=== PATIENT | male | born 1955 | race Two or more races ===

== ENCOUNTER 2023-10-09 10:24 | Emergency (ER) | payer OTHER ==
[~2023-10-09] VITALS: Ht 172.7 cm; Wt 51.3 kg
[2023-10-09] MEDS ORDERED: NORVASC5 MG PO (10:34)
[2023-10-09] MEDS ORDERED: ELIQUIS5 MG PO (10:34)
[2023-10-09] MEDS ORDERED: CARDURA1 MG PO (10:34)
[2023-10-09] MEDS ORDERED: LOSARTAN POTASS50 MG PO (10:34)
[2023-10-09] MEDS ORDERED: TOPROL XL25 M1 PO (10:36)
[2023-10-09] MEDS ORDERED: XOPENEX CO1.25 MG/0. (10:37)
[2023-10-09] MEDS ORDERED: PROTONIX40 M1 PO (10:38)
[2023-10-09 12:10] LABS: HEMATOCRIT 40.5 % (39.0-48.0); HEMOGLOBIN 13.8 g/dL (13-16.00); MEAN CELL VOLUME 94.7 fL (80.0-100.00); MEAN CORPUSCULAR HEMOGLOBIN 32.2 pg (27.00-32.0); PLATELET COUNT 229 K/uL (150-450); RED BLOOD COUNT 4.27 M/uL (4.00-6.00); RED CELL DISTRIBUTION WIDTH 14.3 % (11.5-14.5)
[2023-10-09 12:15] LABS: PH,URINE 7.5 (5.0-8.0); URINE APPEARANCE Clear; URINE BILIRRUBIN Negative (NEGATIVE); URINE BLOOD Large; URINE COLOR Yellow; URINE GLUCOSE Negative (NEGATIVE); URINE LEUKOCYTE Negative; URINE NITRATE Negative; URINE PROTEIN Negative (NEGATIVE); URINE UROBILINOGEN 0.2 E.U./dl
[2023-10-09 12:19] LABS: URINE BACTERIA 22.6 uL (0.0-1933); URINE EPITHELIAL CELLS 2.4 uL (0.0-38.8); URINE RBC 893.1 uL (0.0-20.8); URINE WBC 13.2 uL (0.0-23.2)
[2023-10-09 12:36] LABS: INR 1.21; PROTHROMBIN TIME 12.5 SECONDS (9.0-11.5)
[2023-10-09 12:47] LABS: CALCIUM 9.5 mg/dL (8.5-10.1); CREATININE SERUM 1.21 mg/dL (0.70-1.30); POTASSIUM 4.15 mEq/L (3.5-5.1)
== END 2023-10-09 14:15 | disposition home or self-care (01) ==
LOC: ER 10:25
PROVIDERS: Emergency Medicine
DX: R42 Dizziness and giddiness (principal); I10 Essential (primary) hypertension; I49.8 Other specified cardiac arrhythmias